=== PATIENT | male | born 1930 | race African-American/Black ===

== ENCOUNTER 2017-07-25 12:32 | Emergency (ER) | payer MEDICARE ==
[2017-07-25] MEDS ORDERED: DIPH/PERTUSS(ACELL)/TETANUS VAC/PF 0.5 ML SYR (>=10YO) IM ONE (14:37)
--- NOTE | 2017-07-25 15:40 | RADIOLOGY REPORT (SQ) ---
EXAM DESCRIPTION: CT HEAD WITHOUT COMPLETED DATE/TIME: 07/25/2017 3:19 pm REASON FOR STUDY: fall/centeno COMPARISON: None. TECHNIQUE: Axial images acquired through the brain without intravenous contrast. Images reviewed wi th bone, brain and subdural windows. Images stored on PACS. All CT scanners at this facility use dose modulation, iterative reconstruction, and/or weight based d osing when appropriate to reduce radiation dose to as low as reasonably achievable (ALARA). [facility]: Dose Right [facility]: CareDose [facility]: Dose Right [facility]: Teradose 4D [facility]: [employer] RADIATION DOSE: CT Rad equipment meets quality standard of care and radiation dose reduction techniq ues were employed. CTDIvol: 64.6 mGy. DLP: 1034 mGy-cm.mGy. LIMITATIONS: None. FINDINGS: VENTRICLES: Prominent. CEREBRUM: No masses. No hemorrhage. No midline shift. Areas of low density in the white matter mos t likely due to chronic micro-vascular ischemic change. No evidence for acute infarction. CEREBELLUM: No masses. No hemorrhage. No alteration of density. No evidence for acute infarction. EXTRAAXIAL SPACES: Age-related involutional change. No fluid collections. No masses. ORBITS AND GLOBE: No intra- or extraconal masses. Normal contour of globe without masses. CALVARIUM: No fracture. PARANASAL SINUSES: No fluid levels. SOFT TISSUES: No mass or hematoma. OTHER: No other significant finding. IMPRESSION: CHRONIC CHANGES OF ATROPHY AND MICROVASCULAR ISCHEMIA. NO ACUTE PROCESS. EVIDENCE OF ACUTE STROKE: NO. TECHNICAL DOCUMENTATION: JOB ID: [id number] Quality ID # [id number]: Final reports with documentation of one or more dose reduction techniques (e.g., Au tomated exposure control, adjustment of the mA and/or kV according to patient size, use of iterative reconstruction technique) 2010 [employer]- All Rights Reserved
--- NOTE | 2017-07-25 16:06 | ER Document Report ---
ED General - General Chief Complaint: Head Injury without LOC Stated Complaint: FALL HEAD INJURY Time Seen by Provider: 07/25/17 14:37 Mode of Arrival: Ambulatory Information source: Patient Notes: Patient fell yesterday struck the right side of his head. He has some mild headache today. Nothing makes it better or worse. Does not radiate. He denies any other injuries. No neck pain. There is no loss of consciousness with the fall. It was a mechanical fall in which he tripped over a sleeping bag. Patient denies having a tetanus shot in the last 5 years. The pain is a mild dull pain. TRAVEL OUTSIDE OF THE [place] IN LAST 30 DAYS: No - Related Data Allergies/Adverse Reactions: No Known Allergies Allergy (Verified 07/25/17 12:35) Past Medical History - General Information source: Patient - Social History Smoking Status: Former Smoker Chew tobacco use (# tins/day): No Frequency of alcohol use: None Drug Abuse: None Family History: Reviewed & Not Pertinent Patient has suicidal ideation: No Patient has homicidal ideation: No Renal/ Medical History: Denies: Hx Peritoneal Dialysis - Immunizations Hx Diphtheria, Pertussis, Tetanus Vaccination: No Review of Systems - Review of Systems Constitutional: denies: Chills, Fever Cardiovascular: denies: Chest pain, Palpitations Respiratory: denies: Cough, Short of breath -: Yes All other systems reviewed and negative Physical Exam - Vital signs Vitals: Temp Pulse Resp BP Pulse Ox 97.5 F 85 17 180/73 H 100 07/25/17 12:55 07/25/17 12:55 07/25/17 12:55 07/25/17 12:55 07/25/17 12:55 Interpretation: Normal - General General appearance: Appears well, Alert - HEENT Head: Normocephalic, Atraumatic Eyes: Normal Pupils: PERRL - Respiratory Respiratory status: No respiratory distress Chest status: Nontender Breath sounds: Normal Chest palpation: Normal - Cardiovascular Rhythm: Regular Heart sounds: Normal auscultation Murmur: No - Abdominal Inspection: Normal Distension: No distension Bowel sounds: Normal Tenderness: Nontender Organomegaly: No organomegaly - Back Back: Normal, Nontender - Extremities General upper extremity: Normal inspection, Nontender, Normal color, Normal ROM , Normal temperature General lower extremity: Normal inspection, Nontender, Normal color, Normal ROM , Normal temperature, Normal weight bearing. No: Marlen's sign - Neurological Neuro grossly intact: Yes Cognition: Normal Orientation: AAOx4 Duc Coma Scale Eye Opening: Spontaneous Duc Coma Scale Verbal: Oriented Duc Coma Scale Motor: Obeys Commands Duc Coma Scale Total: 15 Speech: Normal Cranial nerves: Normal Cerebellar coordination: Normal Motor strength normal: LUE, RUE, LLE, RLE Additional motor exam normals: Equal contract analyst Sensory: Normal - Psychological Associated symptoms: Normal affect, Normal mood - Skin Skin Temperature: Warm Skin Moisture: Dry Skin Color: Other - Small abrasion to the right parietal scalp Course - Vital Signs Vital signs: Temp Pulse Resp BP Pulse Ox 97.5 F 85 17 180/73 H 100 07/25/17 12:55 07/25/17 12:55 07/25/17 12:55 07/25/17 12:55 07/25/17 12:55 - Diagnostic Test Radiology reviewed: Image reviewed, Reports reviewed - Head CT shows no evidence of bleeding or ischemia Discharge - Discharge Clinical Impression: Closed head injury Qualifiers: Encounter type: initial encounter Qualified Code(s): S09.90XA - Unspecified injury of head, initial encounter Condition: Stable Disposition: HOME, SELF-CARE Instructions: Concussion ([facility]) Additional Instructions: Your blood pressure is elevated please have this rechecked within 1 week by your doctor. Forms: Elevated Blood Pressure Referrals: LILIANA CAPELLAN MD [ACTIVE STAFF] - Follow up tomorrow
[2017-07-25 16:24] VITALS: BP 187/86
== END 2017-07-25 16:24 | disposition home or self-care (01) ==
LOC: ER 12:32
DX: S00.01XA Abrasion of scalp, initial encounter (principal); R51 Headache; W01.0XXA Fall on same level from slipping, tripping and stumbling without subsequent striking against object, initial encounter; Z87.891 Personal history of nicotine dependence
CPT/HCPCS: 70450; 90471; 90715; 99284

== ENCOUNTER 2018-01-17 10:56 | Emergency (ER) | payer MEDICARE ==
[2018-01-17 11:03] VITALS: BP 173/86
[2018-01-17] MEDS ORDERED: TRAMADOL HCL 50 MG TABLET PO ONE (11:16)
[2018-01-17] MEDS ORDERED: PREDNISONE 20 MG TABLET PO ONE (11:16)
--- NOTE | 2018-01-17 11:21 | ER Document Report ---
ED Medical Screen (RME) - General Chief Complaint: Leg Pain Stated Complaint: LEG PAIN Time Seen by Provider: 01/17/18 11:05 Notes: 87-year-old male PMH chronic low back pain here with complaints of pain radiating from his back down his buttock and down the back of his right leg for the past 1 week. He has tried Advil for the pain. Pain is worse with movement. Pain is improved with minimizing movement. He has not had any numbness tingling weakness fevers chills IV drug use incontinence retention. He has a referral to pain management clinic however the states that the pain management clinic keeps telling her they have not received the referral however the PCP office reports they have already sent it. TRAVEL OUTSIDE OF THE [place] IN LAST 30 DAYS: No - Related Data Allergies/Adverse Reactions: No Known Allergies Allergy (Verified 01/17/18 10:58) Past Medical History - Social History Chew tobacco use (# tins/day): No Frequency of alcohol use: None Drug Abuse: None Renal/ Medical History: Denies: Hx Peritoneal Dialysis - Immunizations Hx Diphtheria, Pertussis, Tetanus Vaccination: No Review of Systems - Review of Systems Notes: See history of present illness for pertinent positive review of systems; otherwise all review of systems have been reviewed and are negative Physical Exam - Vital signs Vitals: Temp Pulse Resp BP Pulse Ox 98.4 F 100 16 173/86 H 96 01/17/18 11:01 01/17/18 11:01 01/17/18 11:01 01/17/18 11:01 01/17/18 11:01 - Notes Notes: PHYSICAL EXAMINATION: GENERAL: Well-appearing and in no acute distress. HEAD: Atraumatic, normocephalic. EYES: Pupils equal round and reactive to light, extraocular movements intact, sclera anicteric, conjunctiva are normal. ENT: nares patent, oropharynx clear without exudates. Moist mucous membranes. NECK: Normal range of motion, supple without lymphadenopathy LUNGS: CTAB and equal. No wheezes rales or rhonchi. HEART: Regular rate and rhythm without murmurs ABDOMEN: Soft, no tenderness. No facial grimacing/wincing upon palpation. No guarding, no rebound. EXTREMITIES: Normal range of motion, no pitting edema. No cyanosis. Minimal right lumbar paraspinal muscle TTP NEUROLOGICAL: Cranial nerves grossly intact. Normal sensory/motor exams. PSYCH: Normal mood, normal affect. SKIN: Warm, Dry, normal turgor, no rashes or lesions noted Course - Re-evaluation Re-evalutation: 01/17/18 11:20 MEDICAL DECISION MAKING: Concern for sciatica but no red flags for concerning acute emergent pathology i.e. cauda equina Will give a dose of tramadol prednisone and prescription for same Instructed on importance of getting pain management referral issues straightened out with help of PCP office Return precautions given otherwise instructed follow-up PCP next day or few Patient understands and agrees to the plan of care - Vital Signs Vital signs: Temp Pulse Resp BP Pulse Ox 98.4 F 100 16 173/86 H 96 01/17/18 11:01 01/17/18 11:01 01/17/18 11:01 01/17/18 11:01 01/17/18 11:01 Doctor's Discharge - Discharge Clinical Impression: Sciatica Qualifiers: Laterality: right Qualified Code(s): M54.31 - Sciatica, right side Condition: Good Disposition: HOME, SELF-CARE Additional Instructions: You were seen in the emergency department at [facility]. Finish the steroids. If you were given any sedating medications, such as tramadol, be sure not to operate heavy machinery (example - driving) and be sure you are not too sedated to walk appropriately. Please followup with your primary physician in the next few days for further management/evaluation. Please return to the emergency department for worsening of symptoms or any symptom that you deem to be concerning or life-threatening. Thank you for allowing us to be part of your care. Prescriptions: Prednisone [Deltasone 20 mg Tablet] 3 tab PO DAILY 4 Days tablet Tramadol HCl 50 mg PO BIDP PRN #10 tablet PRN Reason: Referrals: LILIANA CAPELLAN MD [Primary Care Provider] - Follow up tomorrow
== END 2018-01-17 11:36 | disposition home or self-care (01) ==
LOC: ER 10:56
DX: M54.31 Sciatica, right side (principal)
CPT/HCPCS: 99283; A9270 ×2; J7512

== ENCOUNTER 2020-06-01 11:36 | Inpatient (IN) | payer MEDICARE ==
--- NOTE | 2020-06-01 13:16 | RADIOLOGY REPORT (SQ) ---
EXAM DESCRIPTION: CHEST SINGLE VIEW IMAGES COMPLETED DATE/TIME: 06/01/2020 1:06 pm REASON FOR STUDY: tachypnea COMPARISON: 01/10/2015 None. EXAM PARAMETERS: NUMBER OF VIEWS: One view. TECHNIQUE: Single frontal radiographic view of the chest acquired. RADIATION DOSE: NA LIMITATIONS: None. FINDINGS: LUNGS AND PLEURA: No opacities, masses or pneumothorax. No pleural effusion. MEDIASTINUM AND HILAR STRUCTURES: No masses. Contour normal. HEART AND VASCULAR STRUCTURES: Heart normal in size. Normal vasculature. BONES: No acute findings. HARDWARE: None in the chest. OTHER: No other significant finding. IMPRESSION: 1. NO ACUTE RADIOGRAPHIC FINDING IN THE CHEST. TECHNICAL DOCUMENTATION: JOB ID: [id number] 2010 [employer]- All Rights Reserved Reading location - IP/workstation name: [email or web address]
[2020-06-01 13:17] LABS: ABSOLUTE LYMPHOCYTES (AUTO) 0.8 10^3/uL (0.5-4.7); ABSOLUTE MONOCYTES (AUTO) 0.5 10^3/uL (0.1-1.4); ABSOLUTE NEUT (AUTO) 8.5 10^3/uL (1.7-8.2); BASOPHILS % (AUTO) 0.3 % (0-2); EOSINOPHILS % (AUTO) 0.1 % (0-6); HEMATOCRIT 54.3 % (37.9-51.0); HEMOGLOBIN 17.4 g/dL (13.5-17.0); LYMPHOCYTES % (AUTO) 7.8 % (13-45); MEAN CORPUSCULAR HEMOGLOBIN 28.4 pg (27.0-33.4); MEAN CORPUSCULAR HGB CONC 32.1 g/dL (32.0-36.0); MEAN CORPUSCULAR VOLUME 88 fl (80-97); MONOCYTES % (AUTO) 5.2 % (3-13); PLATELET COUNT 199 10^3/uL (150-450); RED BLOOD COUNT 6.15 10^6/uL (4.35-5.55); RED CELL DISTRIBUTION WIDTH 14.1 % (11.5-14.0); SEGMENTED NEUTROPHILS % (AUTO) 86.6 % (42-78); TOTAL CELLS COUNTED % (AUTO) 100 %; WHITE BLOOD COUNT 9.9 10^3/uL (4.0-10.5)
--- NOTE | 2020-06-01 13:25 | RADIOLOGY REPORT (SQ) ---
EXAM DESCRIPTION: CT HEAD WITHOUT IMAGES COMPLETED DATE/TIME: 06/01/2020 1:07 pm REASON FOR STUDY: weak/fall COMPARISON: 07/25/2017 TECHNIQUE: Axial images acquired through the brain without intravenous contrast. Images reviewed wi th bone, brain and subdural windows. Additional sagittal and coronal reconstructions were generated. Images stored on PACS. All CT scanners at this facility use dose modulation, iterative reconstruction, and/or weight based d osing when appropriate to reduce radiation dose to as low as reasonably achievable (ALARA). [facility]: Dose Right [facility]: CareDose [facility]: Dose Right [facility]: Teradose 4D [facility]: [employer] RADIATION DOSE: CT Rad equipment meets quality standard of care and radiation dose reduction techniq ues were employed. CTDIvol: 53.2 mGy. DLP: 1044 mGy-cm. LIMITATIONS: None. FINDINGS: VENTRICLES: Prominent, commensurate with the sulci, stable findings. The cisterns are pa tent. CEREBRUM: Chronic small vessel ischemic changes, stable findings. No masses. No hemorrhage. No mi dline shift. No evidence for acute infarction. CEREBELLUM: No masses. No hemorrhage. No alteration of density. No evidence for acute infarction. EXTRAAXIAL SPACES: Age related involutional change. No fluid collections. No masses. ORBITS AND GLOBE: No intra- or extraconal masses. Normal contour of globe without masses. CALVARIUM: No fracture. PARANASAL SINUSES: Partially visualized left maxillary sinus mucous retention cyst or polyps and sli ght mucosal thickening. No fluid or mucosal thickening. SOFT TISSUES: No mass or hematoma. OTHER: Atherosclerotic changes involving the cavernous portion of the internal carotid arteries. Pa rtially visualize lucent area surrounding the roots of the distal molar teeth on the left raising the question of possible infection. IMPRESSION: 1. No significant interval changes since the previous examination dated 07/25/2017. No acute intracranial abnormality. 2. Chronic small vessel ischemic changes and atrophy. 3. Question of partially visualized left dental abscess. EVIDENCE OF ACUTE STROKE: NO. COMMENT: Quality ID # [id number]: Final reports with documentation of one or more dose reduction techniques (e.g., Automated exposure control, adjustment of the mA and/or kV according to patient size, use of iterative reconstruction technique) TECHNICAL DOCUMENTATION: JOB ID: [id number] 2010 [employer]- All Rights Reserved Reading location - IP/workstation name: [email or web address]
--- NOTE | 2020-06-01 13:28 | EKG REPORT ---
SEVERITY:- ABNORMAL ECG - SINUS TACHYCARDIA INFERIOR INFARCT, OLD LATERAL LEADS ARE ALSO INVOLVED BORDERLINE PROLONGED QT INTERVAL : Confirmed by: Bear Leon MD 01-Jun-2020 13:27:52
[2020-06-01 13:37] LABS: ALKALINE PHOSPHATASE 110 U/L (38-126); ANION GAP 15 (5-19); ASPARTATE AMINO TRANSFERASE 28 U/L (17-59); BILIRUBIN,DIRECT 0.6 mg/dL (0.0-0.4); BILIRUBIN,TOTAL 1.7 mg/dL (0.2-1.3); BLOOD UREA NITROGEN 62 mg/dL (7-20); CALCIUM 11.3 mg/dL (8.4-10.2); CARBON DIOXIDE 35 mmol/L (22-30); CHLORIDE 101 mmol/L (98-107); GLUCOSE 145 mg/dL (75-110); POTASSIUM 3.5 mmol/L (3.6-5.0); TOTAL PROTEIN 9.1 g/dL (6.3-8.2)
[2020-06-01 13:56] LABS: TROPONIN I 0.053 ng/mL
[2020-06-01] MEDS ORDERED: NORMAL SALINE 1000 ML 1,000 ML IV ONE (14:45)
--- NOTE | 2020-06-01 15:17 | ER Document Report ---
ED Fall - General Chief Complaint: Fall Stated Complaint: WEAKNESS Primary Care Provider: LILIANA CAPELLAN MD [Primary Care Provider] - Follow up as needed Mode of Arrival: Wheelchair Information source: Patient, Relative - TRAVEL OUTSIDE OF THE [place] IN LAST 30 DAYS: No - HPI Notes: Patient is brought in by for weakness and falls. No known trauma from the fall. states that the patient has dementia and she is been unable to get him to take p.o. fluids. Patient cannot contribute significantly to history secondary to his dementia. He does deny any pain shortness of breath or problems at this time. Patient's states there is been no fevers no coughing. Patient has had no vomiting or diarrhea. There is been no known complaints of pain. - Related data Allergies/Adverse Reactions: No Known Allergies Allergy (Verified 01/17/18 10:58) Past Medical History - General Information source: Patient, Relative - - Social History Smoking Status: Former Smoker Frequency of alcohol use: None Drug Abuse: None Family History: Reviewed & Not Pertinent - Past Medical History Cardiac Medical History: Reports: Hx Hypertension Renal/ Medical History: Denies: Hx Peritoneal Dialysis - Immunizations Hx Diphtheria, Pertussis, Tetanus Vaccination: No Review of Systems - Review of Systems -: Yes ROS unobtainable due to patient's medical condition - Cannot obtain review of symptoms secondary to dementia Physical Exam - Vital signs Interpretation: Normal - General General appearance: Appears well, Alert In distress: None - HEENT Head: Normocephalic, Atraumatic Eyes: Normal Pupils: PERRL - Respiratory Respiratory status: No respiratory distress Chest status: Nontender Breath sounds: Normal Chest palpation: Normal - Cardiovascular Rhythm: Regular Heart sounds: Normal auscultation Murmur: No - Abdominal Inspection: Normal Distension: No distension Bowel sounds: Normal Tenderness: Nontender Organomegaly: No organomegaly - Back Back: Normal, Nontender - Extremities General upper extremity: Normal inspection, Nontender, Normal color, Normal ROM, Normal temperature General lower extremity: Normal inspection, Nontender, Normal color, Normal ROM, Normal temperature, Normal weight bearing. No: Marlen's sign - Neurological Cognition: Confused Orientation: Disoriented to events [place] Coma Scale Eye Opening: Spontaneous Duc Coma Scale Verbal: Confused [place] Coma Scale Motor: Obeys Commands Duc Coma Scale Total: 14 Sensory: Normal - Psychological Associated symptoms: Flat affect, Psychomotor depression - Skin Skin Temperature: Warm Skin Moisture: Dry Skin Color: Normal Course - Re-evaluation Re-evalutation: 06/01/20 15:18 Patient is brought in for evaluation by secondary to weakness and some falls. I do not find any evidence of traumatic injury from the falls. Patient does look significantly dehydrated and states that she has been unable to get the patient to drink secondary to dementia. Patient does have some hypercalcemia, and hypernatremia, and elevated creatinine. Patient will be admitted for IV hydration. - Laboratory Result Diagrams: 06/01/20 12:50 06/01/20 12:50 Laboratory results interpreted by me: 06/01/20 06/01/20 12:50 12:50 RBC 6.15 H Hgb 17.4 H Hct 54.3 H RDW 14.1 H Lymph % (Auto) 7.8 L Absolute Neuts (auto) 8.5 H Seg Neutrophils % 86.6 H Sodium 151.3 H Potassium 3.5 L Carbon Dioxide 35 H BUN 62 H Creatinine 2.37 H Est GFR ( Amer) 32 L Est GFR (MDRD) Non-Af 26 L Glucose 145 H Calcium 11.3 H Total Bilirubin 1.7 H Direct Bilirubin 0.6 H Total Protein 9.1 H - Diagnostic Test Radiology reviewed: Image reviewed, Reports reviewed - EKG Interpretation by Me EKG shows normal: Sinus rhythm Rate: Tachycardia - 108 Rhythm: NSR Hadley/QRS: Left axis deviation Discharge - Discharge Clinical Impression: Hypercalcemia, Hypernatremia, Dehydration, Acute kidney injury Dementia Qualifiers: Dementia type: unspecified type Dementia behavioral disturbance: without behavioral disturbance Qualified Code(s): F03.90 - Unspecified dementia without behavioral disturbance Condition: Serious Disposition: ADMITTED INPATIENT Admitting Provider: [facility] Unit Admitted: IMCU Referrals: LILIANA CAPELLAN MD [Primary Care Provider] - Follow up as needed
--- NOTE | 2020-06-01 18:57 | PDOC H&P ---
History of Present Illness Admission Date/PCP: 06/01/20 15:42 LILIANA CAPELLAN MD History of Present Illness: MARQUITA NICHOLS is a 89 year old male, he has advanced dementia, he was brought to the emergency room by his for evaluation of r frequent fall, weakness decreased intake, he has not been eating or drinking. Patient cannot participate in any meaningful medical decision making process. In the emergency room he was evaluated the blood work that was done revealed BUN 62, creatinine 2.37, hemoglobin is 17.4 hematocrit 54.3 calcium 11.3 all consistent with severe dehydration, history taking is very challenging, could not obtain any reliable history from the patient. Past Medical History Cardiac Medical History: Reports: Hypertension Psychiatric Medical History: Reports: Dementia Social History Smoking Status: Former Smoker Family History Family History: Reviewed & Not Pertinent Parental Family History Reviewed: Yes Children Family History Reviewed: Yes Sibling(s) Family History Reviewed.: Yes Medication/Allergy Home Medications: Donepezil HCl 10 mg PO DAILY 01/17/18 Losartan/Hydrochlorothiazide [Hyzaar 100-12.5 Tablet] 1 each PO DAILY 06/01/20 Memantine HCl 10 mg PO DAILY 06/01/20 Allergies/Adverse Reactions: No Known Allergies Allergy (Verified 01/17/18 10:58) Review of Systems ROS unobtainable: Due to mental status Physical Exam Vital Signs: Temp Pulse Resp BP Pulse Ox 97 F L 15 109/70 06/01/20 16:30 06/01/20 17:00 06/01/20 15:15 Intake & Output 05/31/20 06/01/20 06/02/20 06:59 06:59 06:59 Intake Total 1000 Balance 1000 Weight 54.1 kg General appearance: PRESENT: no acute distress, thin Respiratory exam: PRESENT: clear to auscultation cornelia Cardiovascular exam: PRESENT: +S1, +S2 GI/Abdominal exam: PRESENT: soft Neurological exam: PRESENT: alert Skin exam: PRESENT: dry Results Laboratory Results: 06/01/20 12:50 06/01/20 12:50 06/01/20 06/01/20 12:50 12:50 WBC 9.9 RBC 6.15 H Hgb 17.4 H Hct 54.3 H MCV 88 MCH 28.4 MCHC 32.1 RDW 14.1 H Plt Count 199 Seg Neutrophils % 86.6 H Sodium 151.3 H Potassium 3.5 L Chloride 101 Carbon Dioxide 35 H Anion Gap 15 BUN 62 H Creatinine 2.37 H Est GFR ( Amer) 32 L Glucose 145 H Calcium 11.3 H Total Bilirubin 1.7 H AST 28 Alkaline Phosphatase 110 Total Protein 9.1 H Albumin 5.0 06/01/20 12:50 Troponin I 0.053 NT-Pro-B Natriuret Pep 427 Impressions: Head CT 06/01/20 12:17 IMPRESSION: 1. No significant interval changes since the previous examination dated 07/25/2017. No acute intracranial abnormality. 2. Chronic small vessel ischemic changes and atrophy. 3. Question of partially visualized left dental abscess. EVIDENCE OF ACUTE STROKE: NO. Chest X-Ray 06/01/20 12:35 IMPRESSION: 1. NO ACUTE RADIOGRAPHIC FINDING IN THE CHEST. Assessment & Plan - Diagnosis (1) Acute kidney injury Is this a current diagnosis for this admission?: Yes Plan: He has acute kidney injury most likely is from dehydration, prerenal azotemia (2) Dehydration Is this a current diagnosis for this admission?: Yes Plan: Patient with dehydration due to poor intake from dementia there is both clinical and biochemical evidence of dehydration, start fluid 5% dextrose (3) Dementia Qualifiers: Dementia type: Alzheimer's disease Alzheimer's disease onset: late-onset Dementia behavioral disturbance: without behavioral disturbance Qualified Code(s): G30.1 - Alzheimer's disease with late onset; F02.80 - Dementia in other diseases classified elsewhere without behavioral disturbance Is this a current diagnosis for this admission?: Yes Plan: He has advanced dementia progressive, need to discuss with family about long- term plan for this patient (4) Hypercalcemia Is this a current diagnosis for this admission?: Yes Plan: This is most likely related to dehydration but I will request for intact PTH. to determine if this is PTH mediated hypercalcemia (5) Hypernatremia Is this a current diagnosis for this admission?: Yes Plan: This probably due to dehydration - Time Time Spent: Greater than 70 Minutes Critical Time spent with patient: 35 or more minutes Anticipated Discharge Disposition: Home, Self Care Anticipated Discharge Timeframe: within 72 hours - Inpatient Certification Based on my medical assessment, after consideration of the patient's comorbidities, presenting symptoms, or acuity I expect that the services needed warrant INPATIENT care.: Yes I certify that my determination is in accordance with my understanding of Medicare's requirements for reasonable and necessary INPATIENT services [42 CFR 412.3e].: Yes
[2020-06-01] MEDS ORDERED: ENOXAPARIN SODIUM INJ 40 MG/0.4 ML DISP.SYRIN SUBCUT SCH (19:00)
[2020-06-01 19:07] LABS: INTERNATIONAL RATION (INR) 1.21; PROTHROMBIN TIME 15.5 SEC (11.4-15.4)
[2020-06-01 19:09] LABS: PARTIAL THROMBOPLASTIN TIME 24.8 SEC (23.5-35.8)
[2020-06-01 19:17] LABS: PHOSPHORUS 3.5 mg/dL (2.5-4.5)
[2020-06-01 19:35] LABS: FREE T4 (FREE THYROXINE) 1.91 ng/dL (0.78-2.19)
[2020-06-01 19:49] LABS: THYROID STIMULATING HORMONE 1.05 uIU/mL (0.47-4.68)
[2020-06-01 20:30] LABS: APPEARANCE,URINE SLIGHTLY-CLOUDY; BILIRUBIN,URINE NEGATIVE (NEGATIVE); COLOR,URINE AMBER; GLUCOSE, URINE NEGATIVE (NEGATIVE); KETONES,URINE NEGATIVE (NEGATIVE); PROTEIN,URINE 30 mg/dL (NEGATIVE); URINE SPECIFIC GRAVITY 1.019
[2020-06-01 20:42] LABS: URINE AMPHETAMINES SCREEN NEGATIVE; URINE BARBITURATES SCREEN NEGATIVE; URINE BENZODIAZEPINES SCREEN NEGATIVE; URINE COCAINE SCREEN NEGATIVE; URINE MARIJUANA (THC) SCREEN NEGATIVE; URINE METHADONE SCREEN NEGATIVE; URINE PHENCYCLIDINE SCREEN NEGATIVE
[2020-06-01 21:35] LABS: CREATINE KINASE MB 1.64 ng/mL (<4.55); TROPONIN I 0.057 ng/mL
[2020-06-01] MEDS: DEXTROSE 5%-WATER 1000 ML 1,000 ML IV PRN (23:21)
[2020-06-02 03:07] LABS: ABSOLUTE LYMPHOCYTES (AUTO) 1.2 10^3/uL (0.5-4.7); ABSOLUTE MONOCYTES (AUTO) 0.9 10^3/uL (0.1-1.4); ABSOLUTE NEUT (AUTO) 9.7 10^3/uL (1.7-8.2); BASOPHILS % (AUTO) 0.2 % (0-2); EOSINOPHILS % (AUTO) 0.2 % (0-6); HEMATOCRIT 46.7 % (37.9-51.0); LYMPHOCYTES % (AUTO) 10.3 % (13-45); MEAN CORPUSCULAR HEMOGLOBIN 28.4 pg (27.0-33.4); MEAN CORPUSCULAR HGB CONC 32.5 g/dL (32.0-36.0); MEAN CORPUSCULAR VOLUME 87 fl (80-97); MONOCYTES % (AUTO) 7.7 % (3-13); PLATELET COUNT 150 10^3/uL (150-450); RED BLOOD COUNT 5.35 10^6/uL (4.35-5.55); SEGMENTED NEUTROPHILS % (AUTO) 81.6 % (42-78); TOTAL CELLS COUNTED % (AUTO) 100 %
[2020-06-02 03:09] LABS: HEMOGLOBIN 15.2 g/dL (13.5-17.0)
[2020-06-02 03:28] LABS: CREATINE KINASE MB 1.8 ng/mL (<4.55)
[2020-06-02 04:09] LABS: TROPONIN I 0.061 ng/mL
[2020-06-02 09:15] LABS: ALBUMIN 4.4 g/dL (3.5-5.0); ALKALINE PHOSPHATASE 80 U/L (38-126); ANION GAP 11 (5-19); ASPARTATE AMINO TRANSFERASE 33 U/L (17-59); BILIRUBIN,DIRECT 0.6 mg/dL (0.0-0.4); BILIRUBIN,TOTAL 1.6 mg/dL (0.2-1.3); BLOOD UREA NITROGEN 59 mg/dL (7-20); CALCIUM 10.4 mg/dL (8.4-10.2); CARBON DIOXIDE 33 mmol/L (22-30); CHLORIDE 104 mmol/L (98-107); CHOLESTEROL 196.45 mg/dL (0-200); GLUCOSE 117 mg/dL (75-110); POTASSIUM 3.4 mmol/L (3.6-5.0); TOTAL PROTEIN 7.9 g/dL (6.3-8.2); TRIGLYCERIDES 111 mg/dL (<150)
[2020-06-02 09:26] LABS: DIRECT LDL 137 mg/dL (<100)
[2020-06-02 09:27] LABS: CREATINE KINASE MB 1.7 ng/mL (<4.55); TROPONIN I 0.059 ng/mL
[2020-06-02] MEDS: ENOXAPARIN SODIUM INJ 30 MG/0.3 ML DISP.SYRIN SUBCUT SCH (09:57)
[2020-06-02] MEDS: DEXTROSE 5%-WATER 1000 ML 1,000 ML IV PRN ×2 (10:39→21:03)
--- NOTE | 2020-06-02 16:36 | PDOC PROGRESS REPORT ---
Subjective Date:: 06/02/20 Subjective:: Patient seen by the bedside, I discussed with patient's daughter, plan of care, [facility] Reason For Visit: ACUTE KIDNEY INJURY,HYPERNATREMIA,DEHYDRATION, Physical Exam Vital Signs: Temp Pulse Resp BP Pulse Ox 97.2 F 119 H 16 147/81 H 79 L 06/02/20 08:17 06/02/20 11:48 06/02/20 11:48 06/02/20 11:48 06/02/20 11:48 Intake & Output 06/01/20 06/02/20 06/03/20 06:59 06:59 06:59 Intake Total 1000 1120 Output Total 225 Balance 775 1120 Weight 48.1 kg General appearance: PRESENT: no acute distress Eye exam: PRESENT: PERRLA Respiratory exam: PRESENT: clear to auscultation cornelia Cardiovascular exam: PRESENT: +S1, +S2 GI/Abdominal exam: PRESENT: soft Neurological exam: PRESENT: alert Results Laboratory Results: 06/02/20 02:45 06/02/20 08:01 06/01/20 06/01/20 06/01/20 12:50 12:50 19:55 WBC RBC Hgb Hct MCV MCH MCHC RDW Plt Count Seg Neutrophils % Sodium Potassium Chloride Carbon Dioxide Anion Gap BUN Creatinine Est GFR ( Amer) Glucose Calcium Phosphorus 3.5 Magnesium 3.2 H Total Bilirubin AST Alkaline Phosphatase Ammonia Total Protein Albumin Triglycerides Cholesterol LDL Cholesterol Direct VLDL Cholesterol HDL Cholesterol Amylase 221 H Lipase 665.3 H TSH 1.05 Free T4 1.91 Urine Color YURIY Urine Appearance SLIGHTLY-CLOUDY Urine pH 5.0 Ur Specific [place] 1.019 Urine Protein 30 H Urine Glucose (UA) NEGATIVE Urine Ketones NEGATIVE Urine Blood SMALL H Urine RBC (Auto) 1 06/01/20 06/02/20 06/02/20 21:00 02:45 08:01 WBC 12.0 H RBC 5.35 Hgb 15.2 D Hct 46.7 MCV 87 MCH 28.4 MCHC 32.5 RDW 14.0 Plt Count 150 Seg Neutrophils % 81.6 H Sodium 147.9 H Potassium 3.4 L Chloride 104 Carbon Dioxide 33 H Anion Gap 11 BUN 59 H Creatinine 1.75 H Est GFR ( Amer) 45 L Glucose 117 H Calcium 10.4 H Phosphorus Magnesium Total Bilirubin 1.6 H AST 33 Alkaline Phosphatase 80 Ammonia < 8.7 L Total Protein 7.9 Albumin 4.4 Triglycerides 111 Cholesterol 196.45 LDL Cholesterol Direct 137 H VLDL Cholesterol 22.0 HDL Cholesterol 38 L Amylase Lipase TSH Free T4 Urine Color Urine Appearance Urine pH Ur Specific [place] Urine Protein Urine Glucose (UA) Urine Ketones Urine Blood Urine RBC (Auto) 06/01/20 06/01/20 06/01/20 12:50 20:39 20:39 Creatine Kinase 108 CK-MB (CK-2) 1.64 Troponin I 0.053 0.057 NT-Pro-B Natriuret Pep 427 06/02/20 06/02/20 06/02/20 02:45 02:45 08:01 Creatine Kinase 153 172 H CK-MB (CK-2) 1.80 Troponin I 0.061 NT-Pro-B Natriuret Pep 06/02/20 08:01 Creatine Kinase CK-MB (CK-2) 1.70 Troponin I 0.059 NT-Pro-B Natriuret Pep Impressions: Head CT 06/01/20 12:17 IMPRESSION: 1. No significant interval changes since the previous examination dated 07/25/2017. No acute intracranial abnormality. 2. Chronic small vessel ischemic changes and atrophy. 3. Question of partially visualized left dental abscess. EVIDENCE OF ACUTE STROKE: NO. Chest X-Ray 06/01/20 12:35 IMPRESSION: 1. NO ACUTE RADIOGRAPHIC FINDING IN THE CHEST. Assessment & Plan - Diagnosis (1) Acute kidney injury Is this a current diagnosis for this admission?: Yes Plan: Improved with hydration (2) Dehydration Is this a current diagnosis for this admission?: Yes Plan: Continue hydration with fluid (3) Dementia Qualifiers: Dementia type: Alzheimer's disease Alzheimer's disease onset: late-onset Dementia behavioral disturbance: without behavioral disturbance Qualified Code(s): G30.1 - Alzheimer's disease with late onset; F02.80 - Dementia in other diseases classified elsewhere without behavioral disturbance Is this a current diagnosis for this admission?: Yes (4) Hypercalcemia Is this a current diagnosis for this admission?: Yes Plan: Improved,Check intact PTH (5) Hypernatremia Is this a current diagnosis for this admission?: Yes Plan: Improved - Time Time Spent with patient: 25-34 minutes Level of Care: MEDICAL Medications reviewed and adjusted accordingly: Yes Anticipated DC Timeframe: when bed available - Inpatient Certification Based on my medical assessment, after consideration of the patient's comorbidities, presenting symptoms, or acuity I expect that the services needed warrant INPATIENT care.: Yes I certify that my determination is in accordance with my understanding of Medicare's requirements for reasonable and necessary INPATIENT services [42 CFR 412.3e].: Yes
[2020-06-02] MEDS ORDERED: DONEPEZIL HCL 10 MG PO SCH (16:45)
[2020-06-02] MEDS: DONEPEZIL HCL 5 MG TABLET PO SCH (18:04)
[2020-06-02] MEDS: MEMANTINE HCL 10 MG TABLET PO SCH (18:16)
[2020-06-03 07:07] LABS: ABSOLUTE EOSINOPHILS # (AUTO) 0.1 10^3/uL (0.0-0.6); ABSOLUTE LYMPHOCYTES (AUTO) 1.7 10^3/uL (0.5-4.7); ABSOLUTE MONOCYTES (AUTO) 0.6 10^3/uL (0.1-1.4); ABSOLUTE NEUT (AUTO) 5.4 10^3/uL (1.7-8.2); BASOPHILS % (AUTO) 0.2 % (0-2); EOSINOPHILS % (AUTO) 1.4 % (0-6); HEMATOCRIT 43.3 % (37.9-51.0); HEMOGLOBIN 14.3 g/dL (13.5-17.0); LYMPHOCYTES % (AUTO) 21.5 % (13-45); MEAN CORPUSCULAR HEMOGLOBIN 28.9 pg (27.0-33.4); MEAN CORPUSCULAR VOLUME 88 fl (80-97); MONOCYTES % (AUTO) 7.6 % (3-13); PLATELET COUNT 133 10^3/uL (150-450); RED BLOOD COUNT 4.94 10^6/uL (4.35-5.55); RED CELL DISTRIBUTION WIDTH 13.9 % (11.5-14.0); SEGMENTED NEUTROPHILS % (AUTO) 69.3 % (42-78); TOTAL CELLS COUNTED % (AUTO) 100 %; WHITE BLOOD COUNT 7.9 10^3/uL (4.0-10.5)
[2020-06-03] MEDS ORDERED: INFLUENZA QUAD (6MOS+) 2020-21 VAC 0.5 ML SYR IM ONE (08:00)
[2020-06-03] MEDS: MEMANTINE HCL 10 MG TABLET PO SCH (09:57)
[2020-06-03] MEDS: ENOXAPARIN SODIUM INJ 30 MG/0.3 ML DISP.SYRIN SUBCUT SCH (09:57)
[2020-06-03] MEDS: DONEPEZIL HCL 5 MG TABLET PO SCH (09:57)
[2020-06-03] MEDS: DEXTROSE 5%-WATER 1000 ML 1,000 ML IV PRN ×2 (09:57→21:00)
--- NOTE | 2020-06-03 20:56 | PDOC PROGRESS REPORT ---
Subjective Date:: 06/03/20 Subjective:: Patient seen by the bedside, he has dementia, confused at baseline urine culture growing significant colony count more than 100,000, Suggest UTI Reason For Visit: ACUTE KIDNEY INJURY,HYPERNATREMIA,DEHYDRATION, Physical Exam Vital Signs: Temp Pulse Resp BP Pulse Ox 97.4 F 86 16 96/59 L 94 06/03/20 16:44 06/03/20 16:44 06/03/20 16:44 06/03/20 16:44 06/03/20 16:44 Intake & Output 06/02/20 06/03/20 06/04/20 06:59 06:59 06:59 Intake Total 1000 2220 1360 Output Total 225 250 Balance 775 1970 1360 Weight 48.1 kg 49.1 kg 49.1 kg General appearance: PRESENT: no acute distress Eye exam: PRESENT: PERRLA Respiratory exam: PRESENT: clear to auscultation cornelia Cardiovascular exam: PRESENT: +S1, +S2 GI/Abdominal exam: PRESENT: soft Neurological exam: PRESENT: alert Results Laboratory Results: 06/03/20 05:46 06/02/20 08:01 06/03/20 05:46 WBC 7.9 RBC 4.94 Hgb 14.3 Hct 43.3 MCV 88 MCH 28.9 MCHC 33.0 RDW 13.9 Plt Count 133 L Seg Neutrophils % 69.3 06/01/20 19:55 Clean Catch Midstream Urine Culture - Final Mixed Urogenital Shefali 06/01/20 06/01/20 06/01/20 12:50 20:39 20:39 Creatine Kinase 108 CK-MB (CK-2) 1.64 Troponin I 0.053 0.057 NT-Pro-B Natriuret Pep 427 06/02/20 06/02/20 06/02/20 02:45 02:45 08:01 Creatine Kinase 153 172 H CK-MB (CK-2) 1.80 Troponin I 0.061 NT-Pro-B Natriuret Pep 06/02/20 08:01 Creatine Kinase CK-MB (CK-2) 1.70 Troponin I 0.059 NT-Pro-B Natriuret Pep Impressions: Head CT 06/01/20 12:17 IMPRESSION: 1. No significant interval changes since the previous examination dated 07/25/2017. No acute intracranial abnormality. 2. Chronic small vessel ischemic changes and atrophy. 3. Question of partially visualized left dental abscess. EVIDENCE OF ACUTE STROKE: NO. Chest X-Ray 06/01/20 12:35 IMPRESSION: 1. NO ACUTE RADIOGRAPHIC FINDING IN THE CHEST. Assessment & Plan - Diagnosis (1) Acute kidney injury Is this a current diagnosis for this admission?: Yes Plan: The kidney function is improving with hydration (2) Dehydration Is this a current diagnosis for this admission?: Yes Plan: Continue hydration with fluid (3) Dementia Qualifiers: Dementia type: Alzheimer's disease Alzheimer's disease onset: late-onset Dementia behavioral disturbance: without behavioral disturbance Qualified Code(s): G30.1 - Alzheimer's disease with late onset; F02.80 - Dementia in other diseases classified elsewhere without behavioral disturbance Is this a current diagnosis for this admission?: Yes (4) Hypercalcemia Is this a current diagnosis for this admission?: Yes Plan: Serum intact PTH level 164 consistent with primary hyperparathyroidism (5) Hypernatremia Is this a current diagnosis for this admission?: Yes (6) Primary hyperparathyroidism Is this a current diagnosis for this admission?: Yes Plan: 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
[2020-06-03 21:32] LABS: ABSOLUTE EOSINOPHILS # (AUTO) 0.1 10^3/uL (0.0-0.6); ABSOLUTE LYMPHOCYTES (AUTO) 1.2 10^3/uL (0.5-4.7); ABSOLUTE MONOCYTES (AUTO) 0.6 10^3/uL (0.1-1.4); ABSOLUTE NEUT (AUTO) 5.3 10^3/uL (1.7-8.2); BASOPHILS % (AUTO) 0.2 % (0-2); EOSINOPHILS % (AUTO) 1.2 % (0-6); HEMATOCRIT 40.8 % (37.9-51.0); HEMOGLOBIN 13.5 g/dL (13.5-17.0); LYMPHOCYTES % (AUTO) 16.6 % (13-45); MEAN CORPUSCULAR VOLUME 88 fl (80-97); MONOCYTES % (AUTO) 8.1 % (3-13); PLATELET COUNT 130 10^3/uL (150-450); RED BLOOD COUNT 4.65 10^6/uL (4.35-5.55); RED CELL DISTRIBUTION WIDTH 13.9 % (11.5-14.0); SEGMENTED NEUTROPHILS % (AUTO) 73.9 % (42-78); TOTAL CELLS COUNTED % (AUTO) 100 %; WHITE BLOOD COUNT 7.2 10^3/uL (4.0-10.5)
[2020-06-03 22:02] LABS: ALBUMIN 3.8 g/dL (3.5-5.0); ALKALINE PHOSPHATASE 70 U/L (38-126); ANION GAP 10 (5-19); ASPARTATE AMINO TRANSFERASE 28 U/L (17-59); BILIRUBIN,DIRECT 0.3 mg/dL (0.0-0.4); BILIRUBIN,TOTAL 1.9 mg/dL (0.2-1.3); BLOOD UREA NITROGEN 25 mg/dL (7-20); CALCIUM 8.7 mg/dL (8.4-10.2); CARBON DIOXIDE 32 mmol/L (22-30); CHLORIDE 93 mmol/L (98-107); GLUCOSE 91 mg/dL (75-110); TOTAL PROTEIN 6.4 g/dL (6.3-8.2)
[2020-06-03 22:04] LABS: POTASSIUM 2.7 mmol/L (3.6-5.0)
[2020-06-03] MEDS ORDERED: POTASSIUM CHLORIDE 10 MEQ TABLET.ER PO ONE (23:00)
[2020-06-04] MEDS: POTASSIUM CHLORIDE 10 MEQ TABLET.ER PO SCH ×3 (02:16→09:46)
[2020-06-04 05:54] LABS: ABSOLUTE EOSINOPHILS # (AUTO) 0.1 10^3/uL (0.0-0.6); ABSOLUTE LYMPHOCYTES (AUTO) 1.3 10^3/uL (0.5-4.7); ABSOLUTE MONOCYTES (AUTO) 0.7 10^3/uL (0.1-1.4); ABSOLUTE NEUT (AUTO) 5.5 10^3/uL (1.7-8.2); BASOPHILS % (AUTO) 0.2 % (0-2); EOSINOPHILS % (AUTO) 1.2 % (0-6); HEMATOCRIT 37.9 % (37.9-51.0); HEMOGLOBIN 12.7 g/dL (13.5-17.0); LYMPHOCYTES % (AUTO) 16.8 % (13-45); MEAN CORPUSCULAR HEMOGLOBIN 28.9 pg (27.0-33.4); MEAN CORPUSCULAR HGB CONC 33.7 g/dL (32.0-36.0); MEAN CORPUSCULAR VOLUME 86 fl (80-97); MONOCYTES % (AUTO) 9.5 % (3-13); PLATELET COUNT 119 10^3/uL (150-450); RED CELL DISTRIBUTION WIDTH 13.6 % (11.5-14.0); SEGMENTED NEUTROPHILS % (AUTO) 72.3 % (42-78); TOTAL CELLS COUNTED % (AUTO) 100 %; WHITE BLOOD COUNT 7.6 10^3/uL (4.0-10.5)
[2020-06-04] MEDS: MEMANTINE HCL 10 MG TABLET PO SCH (09:46)
[2020-06-04] MEDS: DONEPEZIL HCL 5 MG TABLET PO SCH (09:46)
[2020-06-04] MEDS: ENOXAPARIN SODIUM INJ 30 MG/0.3 ML DISP.SYRIN SUBCUT SCH (10:07)
[2020-06-04] MEDS: DEXTROSE 5%-WATER 1000 ML 1,000 ML IV PRN (12:32)
--- NOTE | 2020-06-04 14:20 | RADIOLOGY REPORT (SQ) ---
EXAM DESCRIPTION: NM PARATHYROID IMAGING IMAGES COMPLETED DATE/TIME: 06/04/2020 12:03 pm REASON FOR STUDY: Primary hyperparathyroidism COMPARISON: None. RADIONUCLIDE AND DOSE: 21.3 millicuries Tc-99m Sestamibi. The route of agent administration: Intravenous ADDITIONAL DRUGS AND DOSES: None. TECHNIQUE: Early and delayed images of the neck acquired following radionuclide administration. LIMITATIONS: None. FINDINGS: Thyroid: Symmetric and homogeneous uptake in the thyroid bed that persists on delayed phas e (i.e. there is no washout). There are no other areas of abnormal uptake. Parathyroid: See above. Other: No other findings. IMPRESSION: Symmetric and homogeneous uptake in the thyroid bed that persists on delayed phase (i.e. there is no washout). There are no other areas of abnormal uptake. If the uptake is confined to the thyroid gland then delayed clearance can be seen in the setting of h ypermetabolic thyroid diseases. TECHNICAL DOCUMENTATION: JOB ID: [id number] 2010 [employer]- All Rights Reserved Reading location - IP/workstation name: [email or web address]
[2020-06-04] MEDS: POTASSI CL 20 MEQ/D5LR 1L 20 MEQ/1,000 ML RTUINJ IV PRN (18:27)
[2020-06-04 18:59] LABS: ALBUMIN 3.6 g/dL (3.5-5.0); ALKALINE PHOSPHATASE 70 U/L (38-126); ANION GAP 10 (5-19); ASPARTATE AMINO TRANSFERASE 26 U/L (17-59); BILIRUBIN,DIRECT 0.2 mg/dL (0.0-0.4); BILIRUBIN,TOTAL 1.4 mg/dL (0.2-1.3); BLOOD UREA NITROGEN 16 mg/dL (7-20); CALCIUM 8.3 mg/dL (8.4-10.2); CARBON DIOXIDE 25 mmol/L (22-30); CHLORIDE 99 mmol/L (98-107); GLUCOSE 89 mg/dL (75-110); TOTAL PROTEIN 6.2 g/dL (6.3-8.2)
[2020-06-04 19:01] LABS: POTASSIUM 3.8 mmol/L (3.6-5.0)
--- NOTE | 2020-06-04 21:38 | PDOC PROGRESS REPORT ---
Subjective Date:: 06/04/20 Subjective:: Patient seen by the bedside, He has baseline dementia Reason For Visit: ACUTE KIDNEY INJURY,HYPERNATREMIA,DEHYDRATION, Physical Exam Vital Signs: Temp Pulse Resp BP Pulse Ox 97.7 F 94 18 124/78 99 06/04/20 16:26 06/04/20 16:26 06/04/20 16:26 06/04/20 16:26 06/04/20 16:26 Intake & Output 06/03/20 06/04/20 06/05/20 06:59 06:59 06:59 Intake Total 2220 2510 1690 Output Total 250 Balance 1970 2510 1690 Weight 49.1 kg 48.7 kg General appearance: PRESENT: no acute distress Eye exam: PRESENT: PERRLA Respiratory exam: PRESENT: clear to auscultation cornelia Cardiovascular exam: PRESENT: +S1, +S2 GI/Abdominal exam: PRESENT: soft Neurological exam: PRESENT: alert Results Laboratory Results: 06/04/20 05:16 06/04/20 18:26 06/03/20 06/03/20 06/04/20 21:22 21:22 05:16 WBC 7.2 7.6 RBC 4.65 4.40 Hgb 13.5 12.7 L Hct 40.8 37.9 MCV 88 86 MCH 29.0 28.9 MCHC 33.0 33.7 RDW 13.9 13.6 Plt Count 130 L 119 L Seg Neutrophils % 73.9 72.3 Sodium 134.5 L Potassium 2.7 L* Chloride 93 L Carbon Dioxide 32 H Anion Gap 10 BUN 25 H Creatinine 1.06 Est GFR ( Amer) > 60 Glucose 91 Calcium 8.7 Total Bilirubin 1.9 H AST 28 Alkaline Phosphatase 70 Total Protein 6.4 Albumin 3.8 06/04/20 18:26 WBC RBC Hgb Hct MCV MCH MCHC RDW Plt Count Seg Neutrophils % Sodium 134.1 L Potassium 3.8 D Chloride 99 Carbon Dioxide 25 Anion Gap 10 BUN 16 Creatinine 0.92 Est GFR ( Amer) > 60 Glucose 89 Calcium 8.3 L Total Bilirubin 1.4 H AST 26 Alkaline Phosphatase 70 Total Protein 6.2 L Albumin 3.6 06/01/20 06/01/20 06/01/20 12:50 20:39 20:39 Creatine Kinase 108 CK-MB (CK-2) 1.64 Troponin I 0.053 0.057 NT-Pro-B Natriuret Pep 427 06/02/20 06/02/20 06/02/20 02:45 02:45 08:01 Creatine Kinase 153 172 H CK-MB (CK-2) 1.80 Troponin I 0.061 NT-Pro-B Natriuret Pep 06/02/20 08:01 Creatine Kinase CK-MB (CK-2) 1.70 Troponin I 0.059 NT-Pro-B Natriuret Pep Impressions: Head CT 06/01/20 12:17 IMPRESSION: 1. No significant interval changes since the previous examination dated 07/25/2017. No acute intracranial abnormality. 2. Chronic small vessel ischemic changes and atrophy. 3. Question of partially visualized left dental abscess. EVIDENCE OF ACUTE STROKE: NO. Chest X-Ray 06/01/20 12:35 IMPRESSION: 1. NO ACUTE RADIOGRAPHIC FINDING IN THE CHEST. Parathyroid Scan Nuclear Medicine 06/04/20 00:00 IMPRESSION: Symmetric and homogeneous uptake in the thyroid bed that persists on delayed phase (i.e. there is no washout). There are no other areas of abnormal uptake. If the uptake is confined to the thyroid gland then delayed clearance can be seen in the setting of hypermetabolic thyroid diseases. Assessment & Plan - Diagnosis (1) Acute kidney injury Is this a current diagnosis for this admission?: Yes Plan: The kidney function is improved with hydration (2) Dehydration Is this a current diagnosis for this admission?: Yes Plan: Continue hydration with fluid (3) Dementia Qualifiers: Dementia type: Alzheimer's disease Alzheimer's disease onset: late-onset Dementia behavioral disturbance: without behavioral disturbance Qualified Code(s): G30.1 - Alzheimer's disease with late onset; F02.80 - Dementia in other diseases classified elsewhere without behavioral disturbance Is this a current diagnosis for this admission?: Yes (4) Hypercalcemia Is this a current diagnosis for this admission?: Yes Plan: improved (5) Hypernatremia Is this a current diagnosis for this admission?: Yes (6) Primary hyperparathyroidism Is this a current diagnosis for this admission?: Yes - Time Time Spent with patient: 25-34 minutes Level of Care: MEDICAL Anticipated discharge: SNF Anticipated DC Timeframe: when bed available
--- NOTE | 2020-06-05 10:06 | PDOC PROGRESS REPORT ---
Subjective Date:: 06/05/20 Subjective:: Patient is currently doing fair Patient is alert awake sitting in the chair with pleasant demeanor she has No nursing concern Reason For Visit: ACUTE KIDNEY INJURY,HYPERNATREMIA,DEHYDRATION, Physical Exam Vital Signs: Temp Pulse Resp BP Pulse Ox 98.4 F 106 H 18 150/74 H 93 06/05/20 00:31 06/05/20 00:31 06/05/20 00:31 06/05/20 00:31 06/05/20 00:31 Intake & Output 06/04/20 06/05/20 06/06/20 06:59 06:59 06:59 Intake Total 2510 1690 Balance 2510 1690 Weight 48.7 kg 36.9 kg General appearance: PRESENT: no acute distress Eye exam: PRESENT: PERRLA Mouth exam: PRESENT: neck supple Respiratory exam: PRESENT: clear to auscultation cornelia Cardiovascular exam: PRESENT: +S1, +S2 GI/Abdominal exam: PRESENT: normal bowel sounds, soft Neurological exam: PRESENT: alert, awake Results Laboratory Results: 06/04/20 05:16 06/04/20 18:26 06/04/20 18:26 Sodium 134.1 L Potassium 3.8 D Chloride 99 Carbon Dioxide 25 Anion Gap 10 BUN 16 Creatinine 0.92 Est GFR ( Amer) > 60 Glucose 89 Calcium 8.3 L Total Bilirubin 1.4 H AST 26 Alkaline Phosphatase 70 Total Protein 6.2 L Albumin 3.6 06/01/20 06/01/20 06/01/20 12:50 20:39 20:39 Creatine Kinase 108 CK-MB (CK-2) 1.64 Troponin I 0.053 0.057 NT-Pro-B Natriuret Pep 427 06/02/20 06/02/20 06/02/20 02:45 02:45 08:01 Creatine Kinase 153 172 H CK-MB (CK-2) 1.80 Troponin I 0.061 NT-Pro-B Natriuret Pep 06/02/20 08:01 Creatine Kinase CK-MB (CK-2) 1.70 Troponin I 0.059 NT-Pro-B Natriuret Pep Impressions: Head CT 06/01/20 12:17 IMPRESSION: 1. No significant interval changes since the previous examination dated 07/25/2017. No acute intracranial abnormality. 2. Chronic small vessel ischemic changes and atrophy. 3. Question of partially visualized left dental abscess. EVIDENCE OF ACUTE STROKE: NO. Chest X-Ray 06/01/20 12:35 IMPRESSION: 1. NO ACUTE RADIOGRAPHIC FINDING IN THE CHEST. Parathyroid Scan Nuclear Medicine 06/04/20 00:00 IMPRESSION: Symmetric and homogeneous uptake in the thyroid bed that persists on delayed phase (i.e. there is no washout). There are no other areas of abnormal uptake. If the uptake is confined to the thyroid gland then delayed clearance can be seen in the setting of hypermetabolic thyroid diseases. Assessment & Plan - Diagnosis (1) Acute kidney injury Is this a current diagnosis for this admission?: Yes (2) Dementia Qualifiers: Dementia type: Alzheimer's disease Alzheimer's disease onset: late-onset Dementia behavioral disturbance: without behavioral disturbance Qualified Code(s): G30.1 - Alzheimer's disease with late onset; F02.80 - Dementia in other diseases classified elsewhere without behavioral disturbance Is this a current diagnosis for this admission?: Yes (3) Primary hyperparathyroidism Is this a current diagnosis for this admission?: Yes - Time Time Spent with patient: 15-24 minutes Level of Care: TELE Medications reviewed and adjusted accordingly: Yes Anticipated discharge: SNF Anticipated DC Timeframe: Other - Plan Summary Plan Summary: Continues to current medications
[2020-06-05] MEDS: ENOXAPARIN SODIUM INJ 30 MG/0.3 ML DISP.SYRIN SUBCUT SCH ×2 (11:38→11:39)
[2020-06-05] MEDS: DONEPEZIL HCL 5 MG TABLET PO SCH ×2 (11:38→11:42)
[2020-06-05] MEDS: MEMANTINE HCL 10 MG TABLET PO SCH ×2 (11:39→11:42)
[2020-06-05] MEDS: POTASSI CL 20 MEQ/D5LR 1L 20 MEQ/1,000 ML RTUINJ IV PRN (19:50)
[2020-06-05 23:13] LABS: ALBUMIN 3.9 g/dL (3.5-5.0); ALKALINE PHOSPHATASE 88 U/L (38-126); ANION GAP 8 (5-19); ASPARTATE AMINO TRANSFERASE 30 U/L (17-59); BILIRUBIN,DIRECT 0.4 mg/dL (0.0-0.4); BILIRUBIN,TOTAL 1.2 mg/dL (0.2-1.3); BLOOD UREA NITROGEN 15 mg/dL (7-20); CALCIUM 9.9 mg/dL (8.4-10.2); CARBON DIOXIDE 24 mmol/L (22-30); CHLORIDE 104 mmol/L (98-107); GLUCOSE 106 mg/dL (75-110); POTASSIUM 4.2 mmol/L (3.6-5.0)
[2020-06-06] MEDS: POTASSI CL 20 MEQ/D5LR 1L 20 MEQ/1,000 ML RTUINJ IV PRN (05:55)
[2020-06-06 06:03] LABS: ALBUMIN 3.9 g/dL (3.5-5.0); ALKALINE PHOSPHATASE 97 U/L (38-126); ANION GAP 12 (5-19); ASPARTATE AMINO TRANSFERASE 33 U/L (17-59); BILIRUBIN,DIRECT 0.4 mg/dL (0.0-0.4); BILIRUBIN,TOTAL 1.4 mg/dL (0.2-1.3); BLOOD UREA NITROGEN 15 mg/dL (7-20); CALCIUM 9.8 mg/dL (8.4-10.2); CARBON DIOXIDE 20 mmol/L (22-30); CHLORIDE 106 mmol/L (98-107); GLUCOSE 114 mg/dL (75-110); POTASSIUM 4.2 mmol/L (3.6-5.0)
[2020-06-06] MEDS: DONEPEZIL HCL 5 MG TABLET PO SCH (09:13)
[2020-06-06] MEDS: MEMANTINE HCL 10 MG TABLET PO SCH (09:13)
[2020-06-06] MEDS: ENOXAPARIN SODIUM INJ 30 MG/0.3 ML DISP.SYRIN SUBCUT SCH (09:17)
--- NOTE | 2020-06-06 09:46 | PDOC PROGRESS REPORT ---
Subjective Date:: 06/06/20 Subjective:: Patient is currently doing same as usual confusion on and off Patient is all blood work is stable No other events happens Reason For Visit: ACUTE KIDNEY INJURY,HYPERNATREMIA,DEHYDRATION, Physical Exam Vital Signs: Temp Pulse Resp BP Pulse Ox 97.3 F 97 18 134/78 H 94 06/06/20 08:00 06/06/20 08:00 06/06/20 08:00 06/06/20 08:00 06/06/20 08:00 Intake & Output 06/05/20 06/06/20 06/07/20 06:59 06:59 06:59 Intake Total 2690 1000 Balance 2690 1000 Weight 36.9 kg 36.9 kg General appearance: PRESENT: no acute distress Eye exam: PRESENT: PERRLA Mouth exam: PRESENT: neck supple Respiratory exam: PRESENT: clear to auscultation cornelia Cardiovascular exam: PRESENT: +S1, +S2 GI/Abdominal exam: PRESENT: normal bowel sounds, soft Neurological exam: PRESENT: alert, awake Results Laboratory Results: 06/04/20 05:16 06/06/20 05:02 06/05/20 06/06/20 22:20 05:02 Sodium 136.3 L 138.1 Potassium 4.2 4.2 Chloride 104 106 Carbon Dioxide 24 20 L Anion Gap 8 12 BUN 15 15 Creatinine 1.11 1.04 Est GFR ( Amer) > 60 > 60 Glucose 106 114 H Calcium 9.9 9.8 Total Bilirubin 1.2 1.4 H AST 30 33 Alkaline Phosphatase 88 97 Total Protein 7.0 7.0 Albumin 3.9 3.9 06/01/20 06/01/20 06/01/20 12:50 20:39 20:39 Creatine Kinase 108 CK-MB (CK-2) 1.64 Troponin I 0.053 0.057 NT-Pro-B Natriuret Pep 427 06/02/20 06/02/20 06/02/20 02:45 02:45 08:01 Creatine Kinase 153 172 H CK-MB (CK-2) 1.80 Troponin I 0.061 NT-Pro-B Natriuret Pep 06/02/20 08:01 Creatine Kinase CK-MB (CK-2) 1.70 Troponin I 0.059 NT-Pro-B Natriuret Pep Impressions: Head CT 06/01/20 12:17 IMPRESSION: 1. No significant interval changes since the previous examination dated 07/25/2017. No acute intracranial abnormality. 2. Chronic small vessel ischemic changes and atrophy. 3. Question of partially visualized left dental abscess. EVIDENCE OF ACUTE STROKE: NO. Chest X-Ray 06/01/20 12:35 IMPRESSION: 1. NO ACUTE RADIOGRAPHIC FINDING IN THE CHEST. Parathyroid Scan Nuclear Medicine 06/04/20 00:00 IMPRESSION: Symmetric and homogeneous uptake in the thyroid bed that persists on delayed phase (i.e. there is no washout). There are no other areas of abnormal uptake. If the uptake is confined to the thyroid gland then delayed clearance can be seen in the setting of hypermetabolic thyroid diseases. Assessment & Plan - Diagnosis (1) Acute kidney injury Is this a current diagnosis for this admission?: Yes (2) Dementia Qualifiers: Dementia type: Alzheimer's disease Alzheimer's disease onset: late-onset Dementia behavioral disturbance: without behavioral disturbance Qualified Code(s): G30.1 - Alzheimer's disease with late onset; F02.80 - Dementia in other diseases classified elsewhere without behavioral disturbance Is this a current diagnosis for this admission?: Yes (3) Primary hyperparathyroidism Is this a current diagnosis for this admission?: Yes - Time Time Spent with patient: 15-24 minutes Level of Care: TELE Medications reviewed and adjusted accordingly: Yes Anticipated discharge: SNF Anticipated DC Timeframe: Other - Plan Summary Plan Summary: Continues to current medications
[2020-06-06] MEDS ORDERED: DEXTROSE 5%-1/2 NORMAL SALINE 1,000 ML IV PRN (13:07)
[2020-06-07] MEDS: DONEPEZIL HCL 5 MG TABLET PO SCH (12:04)
[2020-06-07] MEDS: MEMANTINE HCL 10 MG TABLET PO SCH (12:04)
[2020-06-07] MEDS: ENOXAPARIN SODIUM INJ 30 MG/0.3 ML DISP.SYRIN SUBCUT SCH (12:10)
--- NOTE | 2020-06-07 20:24 | PDOC PROGRESS REPORT ---
Subjective Date:: 06/07/20 Subjective:: Patient seen by the bedside, no new complaints awaiting placement Reason For Visit: ACUTE KIDNEY INJURY,HYPERNATREMIA,DEHYDRATION, Physical Exam Vital Signs: Temp Pulse Resp BP Pulse Ox 97.6 F 94 16 121/64 99 06/07/20 16:00 06/07/20 16:00 06/07/20 16:00 06/07/20 16:00 06/07/20 16:00 Intake & Output 06/06/20 06/07/20 06/08/20 06:59 06:59 06:59 Intake Total 1000 1560 300 Balance 1000 1560 300 Weight 36.9 kg 37.9 kg General appearance: PRESENT: no acute distress Eye exam: PRESENT: PERRLA Respiratory exam: PRESENT: clear to auscultation cornelia Cardiovascular exam: PRESENT: +S1, +S2 GI/Abdominal exam: PRESENT: soft Neurological exam: PRESENT: alert Results Laboratory Results: 06/04/20 05:16 06/06/20 05:02 06/01/20 21:00 Blood Blood Culture - Final NO GROWTH IN 5 DAYS 06/01/20 20:39 Blood Blood Culture - Final NO GROWTH IN 5 DAYS 06/01/20 06/01/20 06/01/20 12:50 20:39 20:39 Creatine Kinase 108 CK-MB (CK-2) 1.64 Troponin I 0.053 0.057 NT-Pro-B Natriuret Pep 427 06/02/20 06/02/20 06/02/20 02:45 02:45 08:01 Creatine Kinase 153 172 H CK-MB (CK-2) 1.80 Troponin I 0.061 NT-Pro-B Natriuret Pep 06/02/20 08:01 Creatine Kinase CK-MB (CK-2) 1.70 Troponin I 0.059 NT-Pro-B Natriuret Pep Impressions: Head CT 06/01/20 12:17 IMPRESSION: 1. No significant interval changes since the previous examination dated 07/25/2017. No acute intracranial abnormality. 2. Chronic small vessel ischemic changes and atrophy. 3. Question of partially visualized left dental abscess. EVIDENCE OF ACUTE STROKE: NO. Chest X-Ray 06/01/20 12:35 IMPRESSION: 1. NO ACUTE RADIOGRAPHIC FINDING IN THE CHEST. Parathyroid Scan Nuclear Medicine 06/04/20 00:00 IMPRESSION: Symmetric and homogeneous uptake in the thyroid bed that persists on delayed phase (i.e. there is no washout). There are no other areas of abnormal uptake. If the uptake is confined to the thyroid gland then delayed clearance can be seen in the setting of hypermetabolic thyroid diseases. Assessment & Plan - Diagnosis (1) Acute kidney injury Is this a current diagnosis for this admission?: Yes Plan: Resolved (2) Dehydration Is this a current diagnosis for this admission?: Yes Plan: Continue hydration with fluid (3) Dementia Qualifiers: Dementia type: Alzheimer's disease Alzheimer's disease onset: late-onset Dementia behavioral disturbance: without behavioral disturbance Qualified Code(s): G30.1 - Alzheimer's disease with late onset; F02.80 - Dementia in other diseases classified elsewhere without behavioral disturbance Is this a current diagnosis for this admission?: Yes (4) Hypercalcemia Is this a current diagnosis for this admission?: Yes Plan: improved (5) Hypernatremia Is this a current diagnosis for this admission?: Yes (6) Primary hyperparathyroidism Is this a current diagnosis for this admission?: Yes - Time Time Spent with patient: 15-24 minutes Level of Care: MEDICAL Anticipated discharge: SNF Anticipated DC Timeframe: when bed available
[2020-06-08] MEDS: ENOXAPARIN SODIUM INJ 30 MG/0.3 ML DISP.SYRIN SUBCUT SCH (14:09)
[2020-06-08 16:46] VITALS: BP 121/64
[2020-06-08] MEDS: MEMANTINE HCL 10 MG TABLET PO SCH (17:21)
[2020-06-08] MEDS: DONEPEZIL HCL 5 MG TABLET PO SCH (17:21)
--- NOTE | 2020-06-08 18:10 | PDOC DISCHARGE SUMMARY ---
Impression - Admit/DC Date/PCP Admission Date/Primary Care Provider: 06/01/20 15:42 LILIANA CAPELLAN MD Discharge Date: 06/08/20 - Discharge Diagnosis (1) Acute kidney injury Is this a current diagnosis for this admission?: Yes (2) Dehydration Is this a current diagnosis for this admission?: Yes (3) Dementia Is this a current diagnosis for this admission?: Yes (4) Hypercalcemia Is this a current diagnosis for this admission?: Yes (5) Hypernatremia Is this a current diagnosis for this admission?: Yes (6) Primary hyperparathyroidism Is this a current diagnosis for this admission?: Yes - Additional Information Discharge Diet: As Tolerated Discharge Activity: Activity As Tolerated, Supervised Activity Referrals: LILIANA CAPELLAN MD [Primary Care Provider] - 06/15/20 2:45 pm Prescriptions: Megestrol Acetate 40 mg PO BID #60 tablet Cinacalcet HCl [Sensipar 30 Mg Tablet] 30 mg PO DAILY #90 tablet Home Medications: Donepezil HCl 10 mg PO DAILY 01/17/18 Losartan/Hydrochlorothiazide [Hyzaar 100-12.5 Tablet] 1 each PO DAILY 06/01/20 Memantine HCl 10 mg PO DAILY 06/01/20 Cinacalcet HCl [Sensipar 30 Mg Tablet] 30 mg PO DAILY #90 tablet 06/08/20 Megestrol Acetate 40 mg PO BID #60 tablet 06/08/20 History of Present Illiness History of Present Illness: MARQUITA NICHOLS is a 89 year old male, he has advanced dementia, he was brought to the emergency room by his for evaluation of r frequent fall, weakness decreased intake, he has not been eating or drinking. Patient cannot participate in any meaningful medical decision making process. In the emergency room he was evaluated the blood work that was done revealed BUN 62, creatinine 2.37, hemoglobin is 17.4 hematocrit 54.3 calcium 11.3 all consistent with severe dehydration, history taking is very challenging, could not obtain any reliable history from the patient. Hospital Course Hospital Course: Patient was admitted for the management of acute kidney injury, dehydration, dementia, hypercalcemia, hypernatremia, primary hyperparathyroidism Acute kidney injury Patient was admitted for the management of acute kidney injury, due to prerenal azotemia partly from inadequate intake, with hydration there was normalization of kidney function. Hypercalcemia There was hypercalcemia on admission, it was PTH mediated Serum calcium 11.3, intact PTH was 164.8.. This is consistent with primary hyperparathyroidism.The nuclear imaging of the parathyroid gland did not demonstrate any discrete adenoma, patient also has dementia, is not particularly a good candidate for surgery because of for this factors he was started on Sensipar Hypernatremia/Dehydration This was corrected with 5% dextrose Physical Exam Vital Signs: Temp Pulse Resp BP Pulse Ox 97.6 F 85 18 121/64 97 06/08/20 16:44 06/08/20 16:44 06/08/20 16:44 06/08/20 16:44 06/08/20 16:44 Intake & Output 06/07/20 06/08/20 06/09/20 06:59 06:59 06:59 Intake Total 1560 300 Balance 1560 300 Weight 37.9 kg 38.2 kg 38.2 kg General appearance: PRESENT: no acute distress Eye exam: PRESENT: PERRLA Respiratory exam: PRESENT: clear to auscultation cornelia Cardiovascular exam: PRESENT: +S1, +S2 GI/Abdominal exam: PRESENT: soft Neurological exam: PRESENT: alert, CN II-XII grossly intact Results Laboratory Results: WBC 7.6 10^3/uL (4.0-10.5) 06/04/20 05:16 RBC 4.40 10^6/uL (4.35-5.55) 06/04/20 05:16 Hgb 12.7 g/dL (13.5-17.0) L 06/04/20 05:16 Hct 37.9 % (37.9-51.0) 06/04/20 05:16 MCV 86 fl (80-97) 06/04/20 05:16 MCH 28.9 pg (27.0-33.4) 06/04/20 05:16 MCHC 33.7 g/dL (32.0-36.0) 06/04/20 05:16 RDW 13.6 % (11.5-14.0) 06/04/20 05:16 Plt Count 119 10^3/uL (150-450) L 06/04/20 05:16 Lymph % (Auto) 16.8 % (13-45) 06/04/20 05:16 [place] % (Auto) 9.5 % (3-13) 06/04/20 05:16 Eos % (Auto) 1.2 % (0-6) 06/04/20 05:16 Baso % (Auto) 0.2 % (0-2) 06/04/20 05:16 Absolute Neuts (auto) 5.5 10^3/uL (1.7-8.2) 06/04/20 05:16 Absolute Lymphs (auto) 1.3 10^3/uL (0.5-4.7) 06/04/20 05:16 Absolute Monos (auto) 0.7 10^3/uL (0.1-1.4) 06/04/20 05:16 Absolute Eos (auto) 0.1 10^3/uL (0.0-0.6) 06/04/20 05:16 Absolute Basos (auto) 0.0 10^3/uL (0.0-0.2) 06/04/20 05:16 Seg Neutrophils % 72.3 % (42-78) 06/04/20 05:16 PT 15.5 SEC (11.4-15.4) H 06/01/20 12:50 INR 1.21 06/01/20 12:50 APTT 24.8 SEC (23.5-35.8) 06/01/20 12:50 Sodium 138.1 mmol/L (137-145) 06/06/20 05:02 Potassium 4.2 mmol/L (3.6-5.0) 06/06/20 05:02 Chloride 106 mmol/L (98-107) 06/06/20 05:02 Carbon Dioxide 20 mmol/L (22-30) L 06/06/20 05:02 Anion Gap 12 (5-19) 06/06/20 05:02 BUN 15 mg/dL (7-20) 06/06/20 05:02 Creatinine 1.04 mg/dL (0.52-1.25) 06/06/20 05:02 Est GFR ( Amer) > 60 (>60) 06/06/20 05:02 Est GFR (MDRD) Non-Af > 60 (>60) 06/06/20 05:02 Glucose 114 mg/dL (75-110) H 06/06/20 05:02 Hemoglobin A1c % 5.0 % (4.7-6.0) 06/02/20 02:45 Calcium 9.8 mg/dL (8.4-10.2) 06/06/20 05:02 Phosphorus 3.5 mg/dL (2.5-4.5) 06/01/20 12:50 Magnesium 3.2 mg/dL (1.6-2.3) H 06/01/20 12:50 Total Bilirubin 1.4 mg/dL (0.2-1.3) H 06/06/20 05:02 Direct Bilirubin 0.4 mg/dL (0.0-0.4) 06/06/20 05:02 Neonat Total Bilirubin Not Reportable 06/06/20 05:02 Neonat Direct Bilirubin Not Reportable 06/06/20 05:02 Neonat Indirect Bili Not Reportable 06/06/20 05:02 AST 33 U/L (17-59) 06/06/20 05:02 ALT 14 U/L (<50) 06/06/20 05:02 Alkaline Phosphatase 97 U/L (38-126) 06/06/20 05:02 Ammonia < 8.7 umol/L (9-33) L 06/01/20 21:00 Creatine Kinase 172 U/L (55-170) H 06/02/20 08:01 CK-MB (CK-2) 1.70 ng/mL (<4.55) 06/02/20 08:01 Troponin I 0.059 ng/mL 06/02/20 08:01 NT-Pro-B Natriuret Pep 427 pg/mL (<450) 06/01/20 12:50 Total Protein 7.0 g/dL (6.3-8.2) 06/06/20 05:02 Albumin 3.9 g/dL (3.5-5.0) 06/06/20 05:02 Triglycerides 111 mg/dL (<150) 06/02/20 08:01 Cholesterol 196.45 mg/dL (0-200) 06/02/20 08:01 LDL Cholesterol Direct 137 mg/dL (<100) H 06/02/20 08:01 VLDL Cholesterol 22.0 mg/dL (10-31) 06/02/20 08:01 HDL Cholesterol 38 mg/dL (>40) L 06/02/20 08:01 Amylase 221 U/L (30-110) H 06/01/20 12:50 Lipase 665.3 U/L (23-300) H 06/01/20 12:50 TSH 1.05 uIU/mL (0.47-4.68) 06/01/20 12:50 Free T4 1.91 ng/dL (0.78-2.19) 06/01/20 12:50 PTH Intact 164.8 pg/mL (10.0-65.0) H 06/02/20 17:41 Urine Color YURIY 06/01/20 19:55 Urine Appearance SLIGHTLY-CLOUDY 06/01/20 19:55 Urine pH 5.0 (5.0-9.0) 06/01/20 19:55 Ur Specific [place] 1.019 06/01/20 19:55 Urine Protein 30 mg/dL (NEGATIVE) H 06/01/20 19:55 Urine Glucose (UA) NEGATIVE mg/dL (NEGATIVE) 06/01/20 19:55 Urine Ketones NEGATIVE mg/dL (NEGATIVE) 06/01/20 19:55 Urine Blood SMALL (NEGATIVE) H 06/01/20 19:55 Urine Nitrite (Reflex) NEGATIVE (NEGATIVE) 06/01/20 19:55 Urine Bilirubin NEGATIVE (NEGATIVE) 06/01/20 19:55 Urine Urobilinogen 2.0 mg/dL (<2.0) H 06/01/20 19:55 Leukocyte Esterase Rfl NEGATIVE (NEGATIVE) 06/01/20 19:55 Urine RBC (Auto) 1 /HPF 06/01/20 19:55 U Hyaline Cast (Auto) 19 /LPF 06/01/20 19:55 Urine Bacteria (Auto) TRACE /HPF 06/01/20 19:55 Urine WBC (Reflex) 3 /HPF 06/01/20 19:55 Squamous Epi Cells Auto <1 /HPF 06/01/20 19:55 Urine Mucus (Auto) RARE /LPF 06/01/20 19:55 Urine Ascorbic Acid NEGATIVE (NEGATIVE) 06/01/20 19:55 Urine Opiates Screen NEGATIVE 06/01/20 19:55 Urine Methadone Screen NEGATIVE 06/01/20 19:55 Ur Barbiturates Screen NEGATIVE 06/01/20 19:55 Ur Phencyclidine Scrn NEGATIVE 06/01/20 19:55 Ur Amphetamines Screen NEGATIVE 06/01/20 19:55 U Benzodiazepines Scrn NEGATIVE 06/01/20 19:55 Urine Cocaine Screen NEGATIVE 06/01/20 19:55 U Marijuana (THC) Screen NEGATIVE 06/01/20 19:55 COVID-19 Source See comment 06/03/20 10:30 COVID-19 ([facility]) Not Detected (Not Detect) 06/03/20 10:30 06/01/20 06/01/20 06/02/20 12:50 20:39 02:45 CK-MB (CK-2) 1.64 1.80 Troponin I 0.053 0.057 0.061 NT-Pro-B Natriuret Pep 427 06/02/20 08:01 CK-MB (CK-2) 1.70 Troponin I 0.059 NT-Pro-B Natriuret Pep Impressions: Head CT 06/01/20 12:17 IMPRESSION: 1. No significant interval changes since the previous examination dated 07/25/2017. No acute intracranial abnormality. 2. Chronic small vessel ischemic changes and atrophy. 3. Question of partially visualized left dental abscess. EVIDENCE OF ACUTE STROKE: NO. Chest X-Ray 06/01/20 12:35 IMPRESSION: 1. NO ACUTE RADIOGRAPHIC FINDING IN THE CHEST. Parathyroid Scan Nuclear Medicine 06/04/20 00:00 IMPRESSION: Symmetric and homogeneous uptake in the thyroid bed that persists on delayed phase (i.e. there is no washout). There are no other areas of abnormal uptake. If the uptake is confined to the thyroid gland then delayed clearance can be seen in the setting of hypermetabolic thyroid diseases. Stroke Is this a Stroke Patient?: No Acute Heart Failure Is this a Heart Failure Patient?: No
== END 2020-06-08 17:24 | disposition home health service (06) | DRG 683 ==
LOC: ER 11:36 → EH 15:42 → 4W 22:45 → 4S 06-04 19:00
PROVIDERS: ADMIT Internal Medicine; ATTEND Internal Medicine
DX: N17.9 Acute kidney failure, unspecified (principal); E87.0 Hyperosmolality and hypernatremia; E86.0 Dehydration; I10 Essential (primary) hypertension; E21.0 Primary hyperparathyroidism; R29.6 Repeated falls; G30.1 Alzheimer's disease with late onset; F02.80 Dementia in other diseases classified elsewhere, unspecified severity, without behavioral disturbance, psychotic disturbance, mood disturbance, and anxiety; Z87.891 Personal history of nicotine dependence; Z79.891 Long term (current) use of opiate analgesic; Z20.828 Contact with and (suspected) exposure to other viral communicable diseases
CPT/HCPCS: 36415; 70450; 71045; 78070; 80053; 80061; 80307; 81001; 82140; 82150; 82550; 82553; 83036; 83690; 83735; 83880; 83970; 84100; 84439; 84443; 84484; 85025; 85610; 85730; 87040; 87086; 87635; 93005; 93010; 99285; A9500; C9803; J1650; J7030; J7060; J7120; Q9969